=== PATIENT | female | born 1990 | race Hispanic/Latino ===

== ENCOUNTER 2020-04-27 21:35 | Emergency (ER) | payer SELFPAY ==
[2020-04-27 22:08] LABS: Urine Blood NEGATIVE (NEG); Urine Glucose NEGATIVE (NEG); Urine Protein NEGATIVE (NEG); Urine pH 7.5 (5.0-7.0)
[2020-04-27 23:00] LABS: Urine Amorphous Sediment 2+ /HPF (NONE SEEN); Urine Bacteria 20-50 /HPF (<20); Urine Culture Reflex Order REFLEXED; Urine RBC <5 /HPF (NONE SEEN); Urine Urothelial Cells <5 /HPF (NONE SEEN)
--- NOTE | 2020-04-27 23:04 | ER ---
Nurse's Notes [facility] Name: Norman Wray Age: 29 yrs Sex: Female : 1990 Arrival Date: 04/27/2020 Time: 21:44 Bed 18 Private MD: Diagnosis: Low back pain;Urinary tract infection, site not specified Presentation: 04/27 21:54 Chief complaint: Patient states: States she has right lower back pain intermittently ll1 for 1 year since she slipped in the shower last year. Pain to right lower back for 3 months. States she has nausea when the pain is severe. No fever. Coronavirus screen: Proceed with normal triage. Patient denies a cough. Patient denies shortness of breath or difficulty breathing. Patient denies measured and/or subjective temperature greater than 100.4F prior to today's visit. Patient denies travel on a cruise ship or to a country the [facility] currently lists as an affected area. Patient denies contact with known and/or suspected case of COVID-19. Ebola Screen: Patient denies travel to an Ebola-affected area in the 21 days before illness onset. Initial Sepsis Screen: Does the patient meet any 2 criteria? No. Patient's initial sepsis screen is negative. Risk Assessment: Do you want to hurt yourself or someone else? Patient reports no desire to harm self or others. Onset of symptoms was January 26, 2020. 21:54 Method Of Arrival: Ambulatory ll1 21:54 Acuity: KAUSHAL 3 ll1 22:53 Initial Sepsis Screen: Does the patient have a suspected source of infection? No. ll1 Patient's initial sepsis screen is negative. 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 - Social history:: Smoking status: Patient denies any tobacco usage or history of. Patient/guardian denies using alcohol, street drugs, tobacco products. Screenin:00 Abuse screen: Denies threats or abuse. Nutritional screening: No deficits noted. ll1 Tuberculosis screening: No symptoms or risk factors identified. Fall Risk None identified. Total Mo Fall Scale indicates No Risk (0-24 pts). Assessment: 22:51 General: Appears in no apparent distress. Behavior is calm, cooperative. Pain: ll1 Complains of pain in right low back. Neuro: No deficits noted. Level of Consciousness is awake, alert, obeys commands, Oriented to person, place, time, situation, Appropriate for age [employer] are equal bilaterally Moves all extremities. Full function Gait is steady, Speech is normal, Facial symmetry appears normal. Cardiovascular: No deficits noted. Respiratory: No deficits noted. GI: No deficits noted. : No deficits noted. Musculoskeletal: Circulation, motion, and sensation intact. Capillary refill < 3 seconds, Reports pain in right low back. 23:11 Reassessment: Patient appears in no apparent distress at this time. No changes from ll1 previously documented assessment. Patient and/or family updated on plan of care and expected duration. Pain level reassessed. Patient is alert, oriented x 3, equal unlabored respirations, skin warm/dry/pink. Vital Signs: 21:54 BP 149 / 92; Pulse 76; Resp 17; Temp 98.3; Pulse Ox 100% ; Pain 6/10; ll1 23:10 BP 128 / 96; Pulse 66; Resp 16; Pulse Ox 100% ; Pain 2/10; ll1 ED Course: 21:44 Patient arrived in ED. cf2 21:45 Maci Corrales FNP-C is [facility]. kb 21:45 Reginald Osman MD is Attending Physician. kb 21:56 Triage completed. ll1 21:56 Arm band placed on Patient placed in an exam room, on a stretcher. ll1 22:07 Rufino Du, APARNA is Primary Nurse. ll1 22:53 Patient has correct armband on for positive identification. Bed in low position. Call ll1 light in reach. Side rails up X 1. 23:10 No provider procedures requiring assistance completed. Patient did not have IV access ll1 during this emergency room visit. Administered Medications: 23:09 Drug: Macrobid 100 mg Route: PO; ll1 23:10 Follow up: Response: No adverse reaction; RASS: Alert and Calm (0) ll1 Outcome: 23:03 Discharge ordered by . kb 23:11 Discharged to home ambulatory. ll1 23:11 Condition: stable 23:11 Discharge instructions given to patient, Instructed on discharge instructions, follow up and referral plans. medication usage, Demonstrated understanding of instructions, follow-up care, medications, Prescriptions given X 3. 23:11 Patient left the ED. ll1 Signatures: Maci Corrales FNP-C FNP-Ann Geronimo 2 Rufino Du, APARNA RN ll1
--- NOTE | 2020-04-27 23:04 | EDPHYS ---
Physician Documentation [facility] Name: Norman Wray Age: 29 yrs Sex: Female : 1990 Arrival Date: 04/27/2020 Time: 21:44 Bed 18 Private MD: ED Physician Reginald Osman HPI: 04/27 22:02 This 29 yrs old Female presents to ER via Ambulatory with complaints of Back kb Pain, Urinary Frequency, Urinary Problem, Abdominal Pain. 22:02 The patient presents with pain that is chronic. The symptoms are located in the right kb low back. Onset: The symptoms/episode began/occurred 8 month(s) ago. The pain does not radiate. Associated signs and symptoms: Pertinent positives: dysuria. The problem was sustained without known cause. Modifying factors: The patient symptoms are alleviated by nothing, the patient symptoms are aggravated by any movement. Severity of symptoms: At their worst the symptoms were moderate, in the emergency department the symptoms are unchanged. The patient has not experienced similar symptoms in the past. The patient has not recently seen a physician. 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 - Social history:: Smoking status: Patient denies any tobacco usage or history of. Patient/guardian denies using alcohol, street drugs, tobacco products. ROS: 22:01 Constitutional: Negative for fever, chills, and weight loss, Cardiovascular: Negative kb for chest pain, palpitations, and edema, Respiratory: Negative for shortness of breath, cough, wheezing, and pleuritic chest pain, Abdomen/GI: Negative for abdominal pain, nausea, vomiting, diarrhea, and constipation, MS/Extremity: Negative for injury and deformity, Skin: Negative for injury, rash, and discoloration, Neuro: Negative for headache, weakness, numbness, tingling, and seizure. 22:01 Back: Positive for pain at rest, of the right low back. 22:01 : Positive for urinary frequency, burning with urination. Exam: 22:01 Constitutional: This is a well developed, well nourished patient who is awake, alert, kb and in no acute distress. Head/Face: Normocephalic, atraumatic. Chest/axilla: Normal chest wall appearance and motion. Nontender with no deformity. No lesions are appreciated. Cardiovascular: Regular rate and rhythm with a normal S1 and S2. No gallops, murmurs, or rubs. Normal PMI, no JVD. No pulse deficits. Respiratory: Lungs have equal breath sounds bilaterally, clear to auscultation and percussion. No rales, rhonchi or wheezes noted. No increased work of breathing, no retractions or nasal flaring. Back: No spinal tenderness. No costovertebral tenderness. Full range of motion. Skin: Warm, dry with normal turgor. Normal color with no rashes, no lesions, and no evidence of cellulitis. MS/ Extremity: Pulses equal, no cyanosis. Neurovascular intact. Full, normal range of motion. Neuro: Awake and alert, GCS 15, oriented to person, place, time, and situation. Cranial nerves II-XII grossly intact. Motor strength 5/5 in all extremities. Sensory grossly intact. Cerebellar exam normal. Normal gait. 22:01 Abdomen/GI: Inspection: abdomen appears normal, Bowel sounds: normal, in all quadrants, Palpation: soft, in all quadrants, mild abdominal tenderness, in the suprapubic area. Vital Signs: 21:54 BP 149 / 92; Pulse 76; Resp 17; Temp 98.3; Pulse Ox 100% ; Pain 6/10; ll1 23:10 BP 128 / 96; Pulse 66; Resp 16; Pulse Ox 100% ; Pain 2/10; ll1 MDM: 21:46 Patient medically screened. kb 22:01 Data reviewed: vital signs, nurses notes. Data interpreted: Pulse oximetry: on room air kb is 100 %. Interpretation: normal. Counseling: I had a detailed discussion with the patient and/or guardian regarding: the historical points, exam findings, and any diagnostic results supporting the discharge/admit diagnosis, lab results, the need for outpatient follow up, a family practitioner, to return to the emergency department if symptoms worsen or persist or if there are any questions or concerns that arise at home. 04/27 22:02 Order name: Urine Dipstick--Ancillary (enter results); Complete Time: 22:16 mt 04/27 22:02 Order name: Urine --Ancillary (enter results); Complete Time: 22:16 mt 04/27 22:02 Order name: Urine Microscopic Only; Complete Time: 23:02 mn 04/27 23:02 Order name: Urine Culture EDMS Administered Medications: 23:09 Drug: Macrobid 100 mg Route: PO; ll1 23:10 Follow up: Response: No adverse reaction; RASS: Alert and Calm (0) ll1 Disposition: 04/28 03:53 Co-signature as Attending Physician, Reginald Osman MD I agree with the assessment and tw4 plan of care. Disposition: 04/27/20 23:03 Discharged to Home. Impression: Low back pain, Urinary tract infection, site not specified. - Condition is Stable. - Discharge Instructions: Urinary Tract Infection, Adult, [id number], Back Pain, Adult, [id number]. - Prescriptions for Ibuprofen 800 mg Oral Tablet - take 1 tablet by ORAL route every 8 hours As needed take with food; 30 tablet. Cyclobenzaprine 10 mg Oral Tablet - take 1 tablet by ORAL route every 8 hours As needed; 21 tablet. Macrobid 100 mg Oral Capsule - take 1 capsule by ORAL route every 12 hours for 7 days; 14 capsule. - Medication Reconciliation Form, Thank You Letter, Antibiotic Education, Prescription Opioid Use form. - Follow up: Emergency Department; When: As needed; Reason: Worsening of condition. Follow up: Private Physician; When: 2 - 3 days; Reason: Recheck today's complaints, Continuance of care, Re-evaluation by your physician. Signatures: Dispatcher [employer] EDMS Maci Corrales, LEGAL COORDINATOR-C LEA-Reginald Corona MD MD tw4 Rufino Du RN RN ll1 Corrections: (The following items were deleted from the chart) 04/27 23:11 23:03 04/27/2020 23:03 Discharged to Home. Impression: Low back pain; Urinary tract ll1 infection, site not specified. Condition is Stable. Forms are Medication Reconciliation Form, Thank You Letter, Antibiotic Education, Prescription Opioid Use. Follow up: Emergency Department; When: As needed; Reason: Worsening of condition. Follow up: Private Physician; When: 2 - 3 days; Reason: Recheck today's complaints, Continuance of care, Re-evaluation by your physician. kb
[2020-04-27] MEDS ORDERED: NITROFURAN MACRO 100 MG CAP PO ONE (23:12)
[2020-04-27 23:16] VITALS: TEMP 98.3; O2SAT 100
[2020-04-27 23:18] VITALS: BP 128/96
== END 2020-04-27 23:11 | disposition home or self-care (01) ==
LOC: ER 21:35
DX: N39.0 Urinary tract infection, site not specified (principal)
CPT/HCPCS: 81003; 81015; 81025; 87086; 87088; 99283